=== PATIENT | female | born 1965 | race American Indian/Alaskan Native ===

== ENCOUNTER 2022-03-07 03:51 | Emergency (ER) | payer SELFPAY ==
[2022-03-07] MEDS ORDERED: KETOROLAC 60 MG/2 ML INJ IM ONE (06:35)
--- NOTE | 2022-03-07 06:40 | Emergency Department Report ---
HPI - General Chief Complaint: Abdominal Pain Time Seen by Provider: 03/07/22 06:27 - [facility] HPI: Room 21 The patient is a 57-year-old female present with a chief complaint of abdominal pain. Patient states yesterday she developed pain in the right upper quadrant that does not radiate. Patient denies nausea/vomiting, dysuria or fever. The patient states after eating red beans and rice the pain did increase. Patient states she otherwise only has the pain when she bends over or pushes on her belly. Patient states she had a previous episode of the same approximate 4 to 5 years ago but was never evaluated and she attributed it to gas. ED Past Medical Hx - Past Medical History Hx Hypertension: Yes - Surgical History Additional Surgical History: Bilateral tubal ligation - Family History Family history: no significant - Social History Smoking Status: Former Smoker (None x15 years) Substance Use Type: None (Denies illicit drug use) - Medications Home Medications: Home Medications Medication Instructions Recorded Confirmed Last Taken Type Dicyclomine [Bentyl] 20 mg PO QID #30 tablet 03/07/22 Unknown Rx HYDROcodone/APAP 5-325 [[place] 1 - 2 each PO Q6HR PRN #14 tablet 03/07/22 Un known Rx 5/325] Ibuprofen [Motrin 800 MG tab] 800 mg PO Q8HR PRN #20 tablet 03/07/22 Unknown Rx ED Review of Systems ROS: Stated complaint: RT SIDE PAIN Other details as noted in HPI Constitutional: denies: fever Eyes: denies: eye pain ENT: denies: throat pain Respiratory: no symptoms reported Cardiovascular: denies: chest pain Endocrine: no symptoms reported Gastrointestinal: abdominal pain. denies: nausea, vomiting Genitourinary: denies: dysuria Musculoskeletal: denies: back pain Neurological: denies: headache Physical Exam - Physical Exam Vital Signs: Vital Signs 03/07/22 03:53 Temperature 98.6 F Pulse Rate 79 Respiratory 20 Rate Blood Pressure 139/86 [Right] O2 Sat by Pulse 99 Oximetry Physical Exam: GENERAL: The patient is well-developed well-nourished female lying on stretcher not appearing to be in acute distress. [] HEENT: Normocephalic. Atraumatic. Extraocular motions are intact. Patient has moist mucous membranes. NECK: Supple. Trachea midline CHEST/LUNGS: Clear to auscultation. There is no respiratory distress noted. HEART/CARDIOVASCULAR: Regular. There is no tachycardia. There is no gallop rub or murmur. ABDOMEN: Abdomen is soft, with tenderness to palpation in the right upper quadrant and midepigastric region. Positive Villagran sign.. Patient has normal bowel sounds. There is no abdominal distention. SKIN: There is no rash. There is no edema. There is no diaphoresis. NEURO: The patient is awake, alert, and oriented. The patient is cooperative. The patient has no focal neurologic deficits. The patient has normal speech. GCS 15 MUSCULOSKELETAL: There is no evidence of acute injury. ED Course Vital Signs 03/07/22 03:53 Temperature 98.6 F Pulse Rate 79 Respiratory 20 Rate Blood Pressure 139/86 [Right] O2 Sat by Pulse 99 Oximetry ED Medical Decision Making - Lab Data Result diagrams: 03/07/22 07:17 03/07/22 07:17 Laboratory Tests 03/07/22 03/07/22 03/07/22 07:17 07:17 09:31 WBC 7.7 RBC 5.06 H Hgb 12.0 Hct 37.2 MCV 74 L MCH 24 L MCHC 32 RDW 18.8 H Plt Count 243 Lymph % (Auto) 31.6 [place] % (Auto) 8.2 H Eos % (Auto) 2.8 Baso % (Auto) 0.4 Lymph # (Auto) 2.4 [place] # (Auto) 0.6 Eos # (Auto) 0.2 Baso # (Auto) 0.0 Seg Neutrophils % 57.0 Seg Neutrophils # 4.4 Sodium 142 Potassium 4.3 Chloride 106.3 Carbon Dioxide 27 Anion Gap 13 BUN 13 Creatinine 0.7 Estimated GFR > 60 BUN/Creatinine Ratio 19 Glucose 104 H Calcium 9.4 Total Bilirubin 0.30 AST 13 ALT 21 Alkaline Phosphatase 95 Total Protein 7.1 Albumin 4.2 Albumin/Globulin Ratio 1.4 Lipase 42 Urine Color Yellow Urine Turbidity Clear Urine pH 5.0 Ur Specific [place] 1.027 Urine Protein <15 mg/dl Urine Glucose (UA) Neg Urine Ketones Neg Urine Blood Neg Urine Nitrite Neg Urine Bilirubin Neg Urine Urobilinogen < 2 Ur Leukocyte Esterase Neg Urine WBC (Auto) 1.0 Urine RBC (Auto) < 1.0 U Epithel Cells (Auto) 2.0 Urine Mucus 1+ - Radiology Data Radiology results: report reviewed (Right upper quadrant ultrasound), image reviewed (Right upper quadrant ultrasound) [facility] [address] [place] [address] Ultrasound Report Signed Patient: ERROL DE LEON MR#: [id number] 50 : 1965 Acct:[id number] Age/Sex: 57 / F ADM Date: 03/07/22 Loc: ED Attending Dr: Ordering Physician: ISH BERGER MD Date of Service: 03/07/22 Procedure(s): US abdomen limited Accession Number(s): [id number] cc: ISH BERGER MD LIMITED RUQ ABDOMINAL ULTRASOUND INDICATION: Right upper quadrant pain. COMPARISON: No relevant prior imaging study available. FINDINGS: Pancreas: Visualized portions show no significant abnormality. Abdominal Aorta: Normal size. IVC: No significant abnormality. Liver: The liver measures 20.1 cm in length. Diffusely echogenic parenchyma. Normal hepatopedal blood flow in the main portal vein. Gallbladder: Small gallstones are present with no inflammatory change. Bile ducts: No significant abnormality. Common bile duct measures 3 mm. Right kidney: No significant abnormality visualized.. Free fluid: None. Additional Findings: None. IMPRESSION: 1. Hepatomegaly with diffusely echogenic liver, most commonly seen with steatosis. 2. Cholelithiasis with no acute inflammation. Signer Name: Frandy Ceballos MD Signed: 03/07/2022 8:45 AM Workstation Name: [id number] Transcribed By: RACHELLE Dictated By: Frandy Ceballos MD Electronically Authenticated By: Frandy Ceballos MD Signed Date/Time: 03/07/22844 DD/ 3 TD/TT: - Differential Diagnosis Symptomatic cholelithiasis, cholecystitis, PUD, pyelonephritis Critical care attestation.: If time is entered above; I have spent that time in minutes in the direct care of this critically ill patient, excluding procedure time. ED Disposition Clinical Impression: Acute abdominal pain, Symptomatic cholelithiasis Disposition: 01 HOME / SELF CARE / HOMELESS Is pt being admited?: No Does the pt Need Aspirin: No Condition: Stable Instructions: Cholelithiasis, [id number], Abdominal Pain (ED) Additional Instructions: Return to the emergency department should you develop worsening symptoms, inability to tolerate food or liquids, high fever or any other concerns Prescriptions: Dicyclomine [Bentyl] 20 mg PO QID #30 tablet Ibuprofen [Motrin 800 MG tab] 800 mg PO Q8HR PRN #20 tablet PRN Reason: Pain, Moderate (4-6) HYDROcodone/APAP 5-325 [[place] 5/325] 1 - 2 each PO Q6HR PRN #14 tablet PRN Reason: Pain Referrals: ROXANN DOUGLASS MD [Staff Physician] - 3-5 Days (Dr. Douglass is a surgeon. Please follow-up with her for further evaluation of your gallbladder) Time of Disposition: 10:31
[2022-03-07 07:38] LABS: Basophils % (Auto) 0.4 % (0.0-1.8); Eosinophils # (Auto) 0.2 K/mm3 (0.0-0.4); Eosinophils % (Auto) 2.8 % (0.0-4.3); Hematocrit 37.2 % (30.3-42.9); Lymphocytes # (Auto) 2.4 K/mm3 (1.2-5.4); Lymphocytes % (Auto) 31.6 % (13.4-35.0); Mean Corpuscular HGB Conc 32 % (30-34); Mean Corpuscular Volume 74 fl (79-97); Monocytes # (Auto) 0.6 K/mm3 (0.0-0.8); Monocytes % (Auto) 8.2 % (0.0-7.3); Platelet Count 243 K/mm3 (140-440); Red Blood Count 5.06 M/mm3 (3.65-5.03); Red Cell Distribution Width 18.8 % (13.2-15.2)
[2022-03-07 07:56] LABS: Alanine Aminotransferase 21 units/L (7-56); Albumin 4.2 g/dL (3.9-5); Blood Urea Nitrogen 13 mg/dL (7-17); Calcium 9.4 mg/dL (8.4-10.2); Hemolysis Index 9
[2022-03-07 07:57] LABS: BUN/Creatinine Ratio 19
[2022-03-07 08:00] VITALS: BP 145/60
--- NOTE | 2022-03-07 08:50 | Ultrasound Report ---
LIMITED RUQ ABDOMINAL ULTRASOUND INDICATION: Right upper quadrant pain. COMPARISON: No relevant prior imaging study available. FINDINGS: Pancreas: Visualized portions show no significant abnormality. Abdominal Aorta: Normal size. IVC: No significant abnormality. Liver: The liver measures 20.1 cm in length. Diffusely echogenic parenchyma. Normal hepatopedal bloo d flow in the main portal vein. Gallbladder: Small gallstones are present with no inflammatory change. Bile ducts: No significant abnormality. Common bile duct measures 3 mm. Right kidney: No significant abnormality visualized.. Free fluid: None. Additional Findings: None. IMPRESSION: 1. Hepatomegaly with diffusely echogenic liver, most commonly seen with steatosis. 2. Cholelithiasis with no acute inflammation. Signer Name: Frandy Ceballos MD Signed: 03/07/2022 8:45 AM Workstation Name: [id number]
[2022-03-07] MEDS ORDERED: DICYCLOMINE 20 MG/2 ML INJ IM ONE (08:55)
[2022-03-07 09:45] LABS: Bilirubin,Urine NEG (Negative); Blood,Urine NEG (Negative); Color,Urine Yellow (Yellow); Mucus,Urine 1+ /HPF; Protein,Urine <15 mg/dL mg/dL (Negative); RBC,Urine < 1.0 /HPF (0.0-6.0); Urobilinogen,Urine < 2 mg/dL (<2.0)
== END 2022-03-07 10:38 | disposition home or self-care (01) ==
LOC: ED 03:51
DX: K80.20 Calculus of gallbladder without cholecystitis without obstruction (principal); I10 Essential (primary) hypertension; Z87.891 Personal history of nicotine dependence; Z98.51 Tubal ligation status; Z88.0 Allergy status to penicillin; Z79.899 Other long term (current) drug therapy
CPT/HCPCS: 36415; 76705; 80053; 81001; 83690; 85025; 96372; 99284; J0500; J1885